=== PATIENT | male | born 1945 | race Caucasian/White ===

== ENCOUNTER 2020-05-06 09:49 | Outpatient (CLI) | payer MEDICARE, SELFPAY | END 2020-05-06 09:50 | disposition home or self-care (01) | LOC: ANHAUDIO 09:51 | PROVIDERS: Visit Provider Otolaryngology | DX: H66.91 Otitis media, unspecified, right ear (principal); H72.91 Unspecified perforation of tympanic membrane, right ear; H90.6 Mixed conductive and sensorineural hearing loss, bilateral | CPT/HCPCS: 92557; 92567 ==